=== PATIENT | female | born 1935 | race Caucasian/White ===

== ENCOUNTER → 2017-02-27 09:48 | Outpatient (CLI) | payer MEDICARE, OTHER ==
[2017-02-28 07:22] LABS: IMMUNOGLOBULIN E 147 IU/mL (0-100)
[2017-02-28 12:14] LABS: IMMUNOGLOBULIN A 207 mg/dL (64-422); IMMUNOGLOBULIN G 1030 mg/dL (700-1600)
== END | disposition home or self-care (01) ==
LOC: D.LAB 09:48 → D.CT 10:30
PROVIDERS: Internal Medicine Pulmonary Disease
DX: J47.9 Bronchiectasis, uncomplicated (principal)

== ENCOUNTER → 2018-01-17 13:47 | Outpatient (CLI) | payer MEDICARE, OTHER | END | disposition home or self-care (01) | LOC: D.RT 10:00 | DX: J47.9 Bronchiectasis, uncomplicated (principal) ==

== ENCOUNTER → 2019-01-14 09:49 | Outpatient (CLI) | payer MEDICARE, OTHER | END | disposition home or self-care (01) | LOC: D.CT 08-12 10:00 | PROVIDERS: ATTEND Internal Medicine Pulmonary Disease | DX: J47.9 Bronchiectasis, uncomplicated (principal) ==